=== PATIENT | male | born 1945 | race Caucasian/White ===

== ENCOUNTER 2018-11-07 10:22 | Emergency (ER) | payer OTHER, SELFPAY ==
[2018-11-07 10:25] VITALS: BP 140/90; PULSE 68; RESP 16; TEMP 36.6; O2SAT 97
--- NOTE | 2018-11-07 10:31 | ED.GENADUL_ITS ---
Discharge Plan Disposition Patient Disposition: HOME Condition: Stable Discharge Details Chief Complaint: Orthopedic Clinical Impression: Fracture of left ulna Primary Care Provider: [facility] Provider: Antwon Schaffer Home Meds and New Rx's Prescriptions: No Action citalopram 40 mg Tablet 40 mg PO DAILY RF: 0 atorvastatin 10 mg Tablet 10 mg PO QHS RF: 0 naproxen sodium [Aleve] 220 mg Capsule 440 mg PO BID PRNRF: 0 acetaminophen [Tylenol Extra Strength] 500 mg Tablet 1,000 mg PO BID PRN PRNRF: 0 Discharge Instructions Instructions: Arm Fracture in Adults (ED) Additional Instructions: follow up with orthopedics within a week if possible if you have severe worsening of pain return to the emergency department for reevaluation Medical Decision Making Patient states [place] on his left forear. no head trauma or loc. Has mid forearm pain without visible or pablable deformity, does have mid forearm tnderness on exam. No pain in wrist, hand or elbow and has full rom of these joints. Suspect contusion but will xray to eval for fx. Given lack of head trauma and no headache, midline neck pain even on rom and palpation do not feel head and c spine imaging indicated xray shows midshaft ulna fracture. He is going home to [place] this week, I advised he see ortho this week and return precautions given. I placed in long arm splint and csmt's intact. no severe pain and compartments soft so dout compartment syndrome Differential Diagnosis fracture, dislocation Imaging Data Radiologic Study: Attestation: I personally reviewed and interpreted this imaging study as follows: Imaging: X-Ray My impression: mid shaft ulna fracture HPI General Mode of arrival: ambulatory . Date/Time Provider Initiated Documentation: 11/07/18 10:27 . Limitations to Documentation: no limitations . Information obtained by: patient . History of Present Illness 73 year old M presents to the emergency department with the chief complaint of left forearm pain, described as moderate, Quality is described as aching, and is localized to the left and upper extremity. Patient reports no radiation. Patient started experiencing this hour(s) (1) and it has been constant. No relieving factors improve symptom(s), No exacerbating factors reported . Patient did receive the following treatments prior to arrival, NSAID Related Data Home Medications Medication Instructions Recorded Confirmed acetaminophen [Tylenol Extra 1,000 mg PO BID PRN PRN 11/07/18 11/07/18 Strength] atorvastatin 10 mg PO QHS 11/07/18 11/07/18 citalopram 40 mg PO DAILY 11/07/18 11/07/18 naproxen sodium [Aleve] 440 mg PO BID PRN 11/07/18 11/07/18 Allergies Allergy/AdvReac Type Severity Reaction Status Date / Time No Known Allergies Allergy Unverified 11/07/18 10:31 General Stated Complaint: Orthopedic YARI: 4 Review of Systems Review of Systems All systems reviewed & are unremarkable except as noted in HPI and below Constitutional Denies chills and Denies fever(s) Cardiovascular Denies chest pain and Denies dyspnea Respiratory Denies dyspnea Gastrointestinal Denies abdominal pain, Denies nausea and Denies vomiting PFSH Social History Smoking/Tobacco Use Status: Former Tobacco Use Alcohol Intake: never Drug use: Occasionally Substance use type: marijuana Do you feel safe at home: Yes Do you feel safe in your relationship?: Yes Exam Const General: no acute distress Orientation: alert HENMT Head: normal to inspection Ears: external ears normal General nose exam: external nose normal Mouth: moist mucous membranes Eyes General: appearance normal, both eyes and all related structures Neck Neck: normal visual inspection Resp Effort & Inspection: normal respiratory effort and able to speak in complete sentences Cardio Rate: regular rate Skin General skin exam: no rashes or lesions noted Neuro General: alert and oriented x3 Extrem General: normal to inspection, full ROM and normal capillary refill Psych Mental Status: mental status grossly normal Course Vital Signs Temperature 36.6 C 11/07/18 10:25 Pulse 68 11/07/18 10:25 Respiratory Rate 16 11/07/18 10:25 Blood Pressure 140/90 11/07/18 10:25 Pulse Oximetry 97 11/07/18 10:25 Temperature 36.6 C 11/07/18 10:25 Temperature Source Temporal Artery Scan 11/07/18 10:25 Pulse 68 11/07/18 10:25 Respiratory Rate 16 11/07/18 10:25 Respiratory Effort Non-Labored 11/07/18 10:28 Blood Pressure 140/90 11/07/18 10:25 Blood Pressure Position Supine 11/07/18 10:25 Pulse Oximetry 97 11/07/18 10:25 Oxygen Delivery Method Room Air 11/07/18 10:25 Oxygen Flow Rate 0 11/07/18 10:25 Pain Level 8 11/07/18 10:29
--- NOTE | 2018-11-07 10:45 | DI.RAD_ITS ---
SYMPTOM/DIAGNOSIS: PAIN S/P FALL LEFT FOREARM: Two views. There is a transverse fracture of the mid shaft of the left ulna. There is mild anterior displacement of the distal fracture fragment. There does appear to be deformity of the radial head with lucency seen extending in to the articular surface. The findings are suspicious for an acute fracture. Dedicated elbow films are recommended for further evaluation. There is mild soft tissue swelling of the forearm. IMPRESSION: 1. Mildly displaced fracture of the mid shaft of the left ulna 2. Deformity involving the radial head. There do appear to be some degenerative changes but an acute fracture should be considered. Dedicated images of the elbow would be helpful for further evaluation.
--- NOTE | 2018-11-07 11:03 | DI.VRAD_ITS ---
EXAM: XR Left Forearm EXAM DATE/TIME: 11/07/2018 10:32 AM CLINICAL HISTORY: 73 years old, male; Other: Pain, S/P fall TECHNIQUE: Imaging protocol: XR Left forearm. Views: 2 views. COMPARISON: No relevant prior studies available. FINDINGS: Bones/joints: Comminuted Displaced fracture or of the midshaft of the ulna.. Lucency in the radial head may represent radial head fracture. Dedicated images of the elbow would be helpful for further evaluation. Degenerative changes in the humeroulnar and humeroradial joint. Soft tissues: Soft tissue swelling of the forearm IMPRESSION: 1. Comminuted Displaced fracture or of the midshaft of the ulna.. 2. Lucency in the radial head may represent radial head fracture. Dedicated images of the elbow would be helpful for further evaluation. Dictated and Authenticated by: Zion Smith MD. Ordering:WES Kapoor MD
== END 2018-11-07 11:10 | disposition home or self-care (01) ==
PROVIDERS: Emergency Provider Emergency Medicine
DX: S52.292A Other fracture of shaft of left ulna, initial encounter for closed fracture (principal); W10.8XXA Fall (on) (from) other stairs and steps, initial encounter
CPT/HCPCS: 25530; 73090; L3650